=== PATIENT | male | born 1960 | race Caucasian/White ===

== ENCOUNTER 2020-11-02 11:24 | Day surgery (SDC) | payer MEDICARE ==
[2020-11-02] MEDS ORDERED: BUPIVACAINE 0.5% VIAL IJ ONE (11:25)
[2020-11-02] MEDS ORDERED: Depo-Medrol 40 MG/ML IM ONE (11:25)
[2020-11-02] MEDS ORDERED: DIPRIVAN 200 MG/20 ML IV ONE (13:03)
--- NOTE | 2020-11-02 14:18 | XRAY ---
Indication: Right hip and greater trochanter bursa injection. Intraoperative fluoroscopy provided for 26 seconds. 2 digital spot image submitted for interpretation demonstrates needle tip projecting lateral to the right femur neck. Second needle tip lateral to the greater trochanter. Small amount of contrast injected for both needle tip placement. Correlate with intraoperative findings/report.
--- NOTE | 2020-11-02 15:03 | XRAY ---
26 seconds of fluoroscopy was used in surgery for a right greater trochanteric bursa and intra-articular hip injection.
[2020-11-02] MEDS ORDERED: Lactated Ringers 1,000 ML IV ONE (15:33)
== END 2020-11-02 13:33 | disposition home or self-care (01) ==
LOC: SDC-PAIN 11:24
PROVIDERS: ATTEND Psychiatry & Neurology Pain Medicine
DX: M70.61 Trochanteric bursitis, right hip (principal); M16.11 Unilateral primary osteoarthritis, right hip; I10 Essential (primary) hypertension; M41.9 Scoliosis, unspecified; G25.81 Restless legs syndrome; Z86.73 Personal history of transient ischemic attack (TIA), and cerebral infarction without residual deficits; I25.10 Atherosclerotic heart disease of native coronary artery without angina pectoris; K21.9 Gastro-esophageal reflux disease without esophagitis; Z79.899 Other long term (current) drug therapy
CPT/HCPCS: 20610; 73502; 77002; J1030; J2704; Q9966

== ENCOUNTER 2021-03-01 09:38 | Day surgery (SDC) | payer MEDICARE ==
[2021-03-01] MEDS ORDERED: DIPRIVAN 200 MG/20 ML IV ONE (09:39)
[2021-03-01] MEDS ORDERED: Depo-Medrol 40 MG/ML IM ONE (09:39)
[2021-03-01] MEDS ORDERED: BUPIVACAINE 0.5% VIAL IJ ONE (09:39)
[2021-03-01] MEDS ORDERED: Lactated Ringers 1,000 ML IV ONE (12:28)
--- NOTE | 2021-03-01 13:06 | XRAY ---
Indication: Right hip and greater trochanter bursa injection. Intraoperative fluoroscopy provided for 22 seconds. 4 digital spot images submitted for interpretation demonstrates needle tip projecting lateral to right femur neck and second needle tip lateral to right greater trochanter. Small amount of contrast injected for both needle tip placement. Correlate with intraoperative findings/report.
--- NOTE | 2021-03-01 13:40 | XRAY ---
22 seconds of fluoroscopy was used in surgery for a right greater trochanteric bursa and intra-articular hip injection.
== END 2021-03-01 12:30 | disposition home or self-care (01) ==
LOC: SDC-PAIN 09:38
PROVIDERS: ATTEND Psychiatry & Neurology Pain Medicine
DX: M16.11 Unilateral primary osteoarthritis, right hip (principal); M70.61 Trochanteric bursitis, right hip; Z79.899 Other long term (current) drug therapy
CPT/HCPCS: 20610; 73502; 77002; J1030; J2704; Q9966

== ENCOUNTER 2021-04-05 10:05 | Day surgery (SDC) | payer MEDICARE ==
[2021-04-05] MEDS ORDERED: BUPIVACAINE 0.5% VIAL IJ ONE (10:06)
[2021-04-05] MEDS ORDERED: Depo-Medrol 40 MG/ML IM ONE (10:06)
[2021-04-05] MEDS ORDERED: DIPRIVAN 200 MG/20 ML IV ONE (12:05)
[2021-04-05] MEDS ORDERED: Lactated Ringers 1,000 ML IV ONE (12:19)
--- NOTE | 2021-04-05 12:39 | XRAY ---
Indication: Right SI joint injection. Intraoperative fluoroscopy provided for 9 seconds. 2 digital spot image submitted for interpretation demonstrate posterior needle tip projecting over the inferior right SI joint. Correlate with intraoperative findings/report.
--- NOTE | 2021-04-05 14:11 | XRAY ---
9 seconds of fluoroscopy was used in surgery for a right SI joint injection.
== END 2021-04-05 12:28 | disposition home or self-care (01) ==
LOC: SDC-PAIN 10:05
PROVIDERS: ATTEND Psychiatry & Neurology Pain Medicine
DX: M46.1 Sacroiliitis, not elsewhere classified (principal); I25.10 Atherosclerotic heart disease of native coronary artery without angina pectoris; K21.9 Gastro-esophageal reflux disease without esophagitis; I10 Essential (primary) hypertension; Z79.899 Other long term (current) drug therapy
CPT/HCPCS: 27096; 72020; 77002; G0260; J1030; J2704

== ENCOUNTER 2021-08-02 09:18 | Day surgery (SDC) | payer MEDICARE ==
[2021-08-02] MEDS ORDERED: Lactated Ringers 1,000 ML IV ONE (11:25)
[2021-08-02] MEDS ORDERED: DIPRIVAN 200 MG/20 ML IV ONE (11:49)
--- NOTE | 2021-08-02 12:41 | XRAY ---
Indication: Right hip and greater trochanter bursa injections. Intraoperative fluoroscopy provided for 27 seconds. 2 digital spot image submitted for interpretation demonstrates needle tip projecting lateral to the right femur neck and greater trochanter. Small amount of contrast injected for both needle tip placement. Correlate with intraoperative findings/report.
--- NOTE | 2021-08-02 14:07 | XRAY ---
27 seconds fluoroscopy time in surgery for intra-articular and greater trochanter injections of the right hip.
== END 2021-08-02 12:17 | disposition home or self-care (01) ==
LOC: SDC-PAIN 09:18
PROVIDERS: ATTEND Psychiatry & Neurology Pain Medicine
DX: M16.11 Unilateral primary osteoarthritis, right hip (principal); M70.61 Trochanteric bursitis, right hip; Z79.899 Other long term (current) drug therapy
CPT/HCPCS: 73502; 77002; J2704

== ENCOUNTER 2022-01-31 10:12 | Day surgery (SDC) | payer MEDICARE ==
[2022-01-31] MEDS ORDERED: Depo-Medrol 40 MG/ML IM ONE (10:13)
[2022-01-31] MEDS ORDERED: Marcaine Mpf 0.5% Vial 30 Ml IJ ONE (10:13)
[2022-01-31] MEDS ORDERED: DIPRIVAN 200 MG/20 ML IV ONE (12:27)
--- NOTE | 2022-01-31 13:23 | XRAY ---
Indication: Right SI joint and right greater trochanter bursa injections. Intraoperative fluoroscopy provided for 13 seconds. 4 digital spot image obtained prone submitted for interpretation demonstrates posterior needle tip projecting over the right SI joint. Second needle tip lateral to right greater trochanter with small amount of contrast injected for needle tip placement. Correlate with intraoperative findings/report.
--- NOTE | 2022-01-31 13:24 | XRAY ---
13 seconds fluoroscopy time in surgery for injections of the right SI joint and the greater trochanteric bursa of the right hip.
[2022-01-31] MEDS ORDERED: Lactated Ringers 1,000 ML IV ONE (14:21)
== END 2022-01-31 12:50 | disposition home or self-care (01) ==
LOC: SDC-PAIN 10:12
PROVIDERS: ATTEND Psychiatry & Neurology Pain Medicine
DX: M46.1 Sacroiliitis, not elsewhere classified (principal); M70.61 Trochanteric bursitis, right hip; Z79.899 Other long term (current) drug therapy
CPT/HCPCS: 01992; 20610; 27096; 73501; 77002; G0260; J1030; J2704; Q9966

== ENCOUNTER 2022-04-18 08:55 | Day surgery (SDC) | payer MEDICARE ==
[2022-04-18] MEDS ORDERED: Depo-Medrol 40 MG/ML IM ONE (08:56)
[2022-04-18] MEDS ORDERED: Sodium Chloride 0.9(Preservative Free) 10 ML IJ ONE (08:56)
[2022-04-18] MEDS ORDERED: DIPRIVAN 200 MG/20 ML IV ONE (11:08)
--- NOTE | 2022-04-18 12:17 | XRAY ---
Indication: Right L4-S1 transforaminal BRINA. Intraoperative fluoroscopy provided 37 seconds. 7 digital spot image submitted for interpretation demonstrates posterior needle tips projecting over the expected right L4 and L5 nerve roots. Small amount of contrast injected for needle tip placement. Correlate with intraoperative findings/report.
--- NOTE | 2022-04-18 12:19 | XRAY ---
37 seconds of fluoroscopy was used in surgery for a right L4-S1 transforaminal BRINA.
[2022-04-18] MEDS ORDERED: Lactated Ringers 1,000 ML IV ONE (12:52)
== END 2022-04-18 11:45 | disposition home or self-care (01) ==
LOC: SDC-PAIN 08:55
PROVIDERS: ATTEND Psychiatry & Neurology Pain Medicine
DX: M54.16 Radiculopathy, lumbar region (principal); Z79.899 Other long term (current) drug therapy
CPT/HCPCS: 64483; 64484; 72100; 77003; J1030; J2704; Q9966

== ENCOUNTER 2022-05-16 10:53 | Day surgery (SDC) | payer MEDICARE ==
[2022-05-16] MEDS ORDERED: LIDOCAINE HCL 2% 100 MG/5 ML IJ ONE (10:54)
[2022-05-16] MEDS ORDERED: DIPRIVAN 200 MG/20 ML IV ONE (13:00)
[2022-05-16] MEDS ORDERED: Lactated Ringers 1,000 ML IV ONE (14:08)
--- NOTE | 2022-05-16 16:19 | XRAY ---
Indication: Bilateral L4-S1 MBB. Intraoperative fluoroscopy provided for 29 seconds. Single digital spot image submitted for interpretation demonstrates posterior needle tips projecting over the expected left and right L4-S1 nerve roots. Correlate with intraoperative findings/report.
--- NOTE | 2022-05-16 16:30 | XRAY ---
29 seconds of fluoroscopy was used in surgery for a bilateral L4-S1 MBB.
== END 2022-05-16 13:21 | disposition home or self-care (01) ==
LOC: SDC-PAIN 10:53
PROVIDERS: ATTEND Psychiatry & Neurology Pain Medicine
DX: M47.816 Spondylosis without myelopathy or radiculopathy, lumbar region (principal); Z79.899 Other long term (current) drug therapy
CPT/HCPCS: 64493; 64494; 72020; 77002; J2704

== ENCOUNTER 2022-06-13 11:11 | Day surgery (SDC) | payer MEDICARE ==
[2022-06-13] MEDS ORDERED: BUPIVACAINE 0.5% VIAL IJ ONE (11:12)
[2022-06-13] MEDS ORDERED: Lactated Ringers 1,000 ML IV ONE (13:32)
[2022-06-13] MEDS ORDERED: DIPRIVAN 200 MG/20 ML IV ONE (13:54)
--- NOTE | 2022-06-13 14:24 | XRAY ---
Indication: Bilateral L4-S1 MBB. Intraoperative fluoroscopy provided for 17 seconds. Single digital spot image submitted for interpretation demonstrates posterior needle tips projecting over the expected left and right L4-S1 nerve roots. Correlate with intraoperative findings/report.
--- NOTE | 2022-06-13 14:30 | XRAY ---
17 seconds of fluoroscopy was used in surgery for a bilateral L4-S1 MBB.
== END 2022-06-13 14:25 | disposition home or self-care (01) ==
LOC: SDC-PAIN 11:11
PROVIDERS: ATTEND Psychiatry & Neurology Pain Medicine
DX: M47.816 Spondylosis without myelopathy or radiculopathy, lumbar region (principal); Z79.899 Other long term (current) drug therapy
CPT/HCPCS: 64493; 64494; 72020; 77002; J2704

== ENCOUNTER 2022-07-11 14:43 | Day surgery (SDC) | payer MEDICARE ==
[2022-07-11] MEDS ORDERED: BUPIVACAINE 0.5% VIAL IJ ONE (14:44)
[2022-07-11] MEDS ORDERED: Depo-Medrol 40 MG/ML IM ONE (14:44)
[2022-07-11] MEDS ORDERED: LIDOCAINE HCL 1% 50 MG/5 ML VL PF IJ ONE (14:44)
[2022-07-11] MEDS ORDERED: DIPRIVAN 200 MG/20 ML IV ONE (17:15)
[2022-07-11] MEDS ORDERED: Lactated Ringers 1,000 ML IV ONE (17:17)
--- NOTE | 2022-07-11 20:50 | XRAY ---
Indication: Right L4-S1 RFA. Intraoperative fluoroscopy provided for 31 seconds. 3 digital spot image submitted for interpretation demonstrates posterior needle tips projecting over the expected right L4-S1 nerve roots. Correlate with intraoperative findings/report.
--- NOTE | 2022-07-12 08:42 | XRAY ---
31 seconds of fluoroscopy was used in surgery for a right L4-S1 RFA.
== END 2022-07-11 17:50 | disposition home or self-care (01) ==
LOC: SDC-PAIN 14:43
PROVIDERS: ATTEND Psychiatry & Neurology Pain Medicine
DX: M47.816 Spondylosis without myelopathy or radiculopathy, lumbar region (principal); Z79.899 Other long term (current) drug therapy
CPT/HCPCS: 64635; 64636; 72100; 77002; J1030; J2001; J2704

== ENCOUNTER 2022-07-25 12:29 | Emergency (ER) | payer MEDICARE ==
--- NOTE | 2022-07-25 12:38 | ERPHSYRPT ---
- History of Present Illness Time Seen by Provider: 07/25/22 12:37 Source: patient Exam Limitations: no limitations Physician History: This is a 62-year-old white male who has a history of CVA in the past and has been on Aggrenox antiplatelet therapy for this. He has been off this medication for few days because he was to undergo a spinal procedure in his back. However, in the preop assessment he was found to be tachycardic in the 160s range. A twelve-lead EKG did show atrial fibrillation with RVR. It captured at a heart rate of 114 bpm. Patient denies chest pain. Patient denies shortness of breath. Obviously, the procedure was canceled and he was sent to the emergency department for further evaluation and management. He does not appear to be in any distress in the emergency department. Patient states he has no known history of atrial fibrillation. He has never had this happen to him before. He last saw a java web developer 6 years ago. He does not recall the name of that java web developer. Timing/Duration: today Severity of Pain-Max: none Severity of Pain-Current: none Nitro Today/Relief: no nitro taken today Aspirin Treatment Today: no aspirin today Associated Symptoms: denies symptoms, No shortness of breath, No chest pain Prior Chest Pain/Cardiac Workup: no prior chest pain, cardiac cath (6 years ago and everything was negative per patient report) Allergies/Adverse Reactions: No Known Drug Allergies Allergy (Verified 07/25/22 12:52) Home Medications: Ascorbic Acid [Vitamin C] 500 mg PO QID 07/25/22 [History] Aspirin/Dipyridamole [Aspirin-Dipyridam ER 25-200 mg] 1 each PO BID 07/25/22 [History] Baclofen 10 mg [Lioresal 10 mg] 10 mg PO TID 07/25/22 [History] Folic Acid 1 mg [Folate 1 mg] 1 mg PO DAILY 07/25/22 [History] Glucosamine/Methylsulfonylmeth [Glucosamine-MSM Caplet] 2 each PO DAILY 07/25/22 [History] Hydrocodone/Acetaminophen [Hydrocodone-Acetamin 10-325 mg] 1 each PO TID PRN 07/25/22 [History] Latanoprost/Pf [Latanoprost 0.005% Eye Drop] 0 ml OP HS 07/25/22 [History] Lisinopril 10 mg [Zestril 10 MG] 10 mg PO DAILY 07/25/22 [History] Losartan Potassium 50 mg [Cozaar 50 MG] 50 mg PO DAILY 07/25/22 [History] Magnesium Oxide [Magnesium] 800 mg PO DAILY 07/25/22 [History] Omeprazole 40 mg PO DAILY 07/25/22 [History] Pramipexole Di-HCl [Pramipexole Dihydrochloride] 2 mg PO BID 07/25/22 [History] Rosuvastatin Calcium 10 mg PO HS 07/25/22 [History] Timolol Maleate 0.5% Eye [Timoptic 0.5% 5 ml Ophthalmic] 0 ml OP QAM 07/25/22 [History] Zinc Gluconate [Zinc] 100 mg PO DAILY 07/25/22 [History] levETIRAcetam [Levetiracetam] 1,500 mg PO QAM 07/25/22 [History] Travel Risk - International Travel Have you traveled outside of the country in past 3 weeks: No - Coronavirus Screening Are you exhibiting any of the following symptoms?: No Close contact with a COVID-19 positive Pt in past 14-21 Days: No - Review of Systems Constitutional: No Symptoms Eyes: No Symptoms Ears, Nose, & Throat: No Symptoms Respiratory: No Symptoms Cardiac: Palpitations Abdominal/Gastrointestinal: No Symptoms Genitourinary Symptoms: No Symptoms Musculoskeletal: No Symptoms Skin: No Symptoms Neurological: No Symptoms Psychological: No Symptoms Endocrine: No Symptoms Hematologic/Lymphatic: No Symptoms Immunological/Allergic: No Symptoms All Other Systems: Reviewed and Negative - Past Medical History Pertinent Past Medical History: Yes - Past Surgical History Past Surgical History: Yes - Nursing Vital Signs Nursing Vital Signs: Initial Vital Signs Temperature 98.0 F 07/25/22 12:32 Pulse Rate 105 H 07/25/22 12:32 Respiratory Rate 16 07/25/22 12:32 Blood Pressure 126/79 07/25/22 12:32 O2 Sat by Pulse Oximetry 97 07/25/22 12:32 Pain Scale Pain Intensity 0 - Physical Exam General Appearance: no apparent distress, alert, anxiety Eye Exam: PERRL/EOMI, eyes nml inspection Ears, Nose, Throat Exam: normal ENT inspection, moist mucous membranes Neck Exam: normal inspection, non-tender, supple, full range of motion Respiratory Exam: normal breath sounds, lungs clear, No chest tenderness, No respiratory distress, No airway intact Cardiovascular Exam: tachycardia, irregular Gastrointestinal/Abdomen Exam: soft, normal bowel sounds, No tenderness Back Exam: normal inspection, normal range of motion, No CVA tenderness Extremity Exam: normal inspection, normal range of motion, pelvis stable Neurologic Exam: alert, oriented x 3, cooperative, playground 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 This was interpreted by me.) Ordered Tests: Active Orders 24 hr Category Date Time Status Ceramics Test Engineer STAT Care 07/25/22 12:56 Active EKG-ER Only STAT Care 07/25/22 12:56 Active IV Insertion STAT Care 07/25/22 12:56 Active CBC W DIFF Stat Lab 07/25/22 13:00 Completed CMP Stat Lab 07/25/22 13:00 Completed MAGNESIUM Stat Lab 07/25/22 13:00 Completed NT PRO BNPII Stat Lab 07/25/22 13:00 Completed PROTIME WITH INR Stat Lab 07/25/22 13:00 Completed TROPONIN Q4H Lab 07/25/22 13:00 Completed TROPONIN Q4H Lab 07/25/22 17:00 Ordered TROPONIN Q4H Lab 07/25/22 21:00 Ordered EKG STAT RT 07/25/22 12:11 Completed Medication Summary Generic Name Dose Route Start Last Admin Trade Name Freq PRN Reason Stop Dose Admin Sodium Chloride 1,000 mls @ 100 mls/hr 07/25/22 14:00 07/25/22 13:52 Sodium Chloride 0.9% 1000 Ml IV 08/24/22 13:59 100 mls/hr .Q10H ROJELIO Administration Discontinued Medications Generic Name Dose Route Start Last Admin Trade Name Freq PRN Reason Stop Dose Admin Diltiazem HCl 15 mg 07/25/22 12:56 07/25/22 13:09 Diltiazem Hcl Iv 5 Mg/Ml Vial IV 07/25/22 12:57 15 mg STAT ONE Administration Diltiazem HCl Confirm 07/25/22 13:03 Diltiazem Hcl Iv 5 Mg/Ml Vial Administered 07/25/22 13:04 Dose 50 mg IV .STK-MED ONE Enoxaparin Sodium 100 mg 07/25/22 13:03 07/25/22 13:39 Enoxaparin Sodium 120 Mg/0.8 Ml Syringe SQ 07/25/22 13:04 100 mg STAT STA Administration Enoxaparin Sodium Confirm 07/25/22 13:39 Enoxaparin Sodium 120 Mg/0.8 Ml Syringe Administered 07/25/22 13:40 Dose 120 mg SQ .STK-MED ONE Sodium Chloride Confirm 07/25/22 13:03 Sodium Chloride 0.9% 1000 Ml Administered 07/25/22 13:04 Dose 1,000 mls @ ud .ROUTE .STK-MED ONE Lab/Rad Data: Laboratory Result Diagrams 07/25/22 13:00 07/25/22 13:00 Laboratory Results 07/25/22 07/25/22 07/25/22 Range/Units 13:00 13:00 13:00 WBC (4.0-10.5) x10^3/uL RBC (4.1-5.6) x10^6/uL Hgb (12.5-18.0) g/dL Hct (42-50) % MCV (78-100) fL MCH (26-32) pg MCHC (32-36) g/dL RDW (11.5-14.0) % Plt Count (150-450) x10^3/uL MPV (7.5-11.0) fL Gran % (36.0-66.0) % Immature Gran % (Auto) (0.00-0.4) % Nucleat RBC Rel Count (0.00-0.1) % Eos # (Auto) (0-0.5) x10^3/uL Immature Gran # (Auto) (0.00-0.03) x10^3u/L Absolute Lymphs (auto) (1.0-4.6) x10^3/uL Absolute Monos (auto) (0.0-1.3) x10^3/uL Absolute Nucleated RBC (0.00-0.01) x10^3u/L Lymphocytes % (24.0-44.0) % Monocytes % (0.0-12.0) % Eosinophils % (0.00-5.0) % Basophils % (0.0-0.4) % Absolute Granulocytes (1.4-6.9) x10^3/uL Basophils # (0-0.4) x10^3/uL PT 10.9 (9.4-12.5) SECONDS INR 1.00 (0.8-3.0) Sodium 140 (137-145) mmol/L Potassium 4.2 (3.5-5.1) mmol/L Chloride 105 (98-107) mmol/L Carbon Dioxide 26 (22-30) mmol/L Anion Gap 13.7 (5-15) MEQ/L BUN 15 (9-20) mg/dL Creatinine 0.68 (0.66-1.25) mg/dL Estimated GFR > 60.0 ML/MIN Glucose 106 (74-106) mg/dL Calcium 9.4 (8.4-10.2) mg/dL Magnesium 2.2 (1.6-2.3) mg/dL Total Bilirubin 1.10 (0.2-1.3) mg/dL AST 28 (17-59) U/L ALT 23 (0-50) U/L Alkaline Phosphatase 66 (38-126) U/L Troponin I < 0.012 (0.000-0.034) ng/mL NT-Pro-B Natriuret Pep 63.3 (<300) pg/mL Serum Total Protein 6.8 (6.3-8.2) g/dL Albumin 4.4 (3.5-5.0) g/dL 07/25/22 Range/Units 13:00 WBC 6.4 (4.0-10.5) x10^3/uL RBC 4.88 (4.1-5.6) x10^6/uL Hgb 15.3 (12.5-18.0) g/dL Hct 45.4 (42-50) % MCV 93.0 (78-100) fL MCH 31.4 (26-32) pg MCHC 33.7 (32-36) g/dL RDW 13.2 (11.5-14.0) % Plt Count 232 (150-450) x10^3/uL MPV 8.6 (7.5-11.0) fL Gran % 67.7 H (36.0-66.0) % Immature Gran % (Auto) 0.3 (0.00-0.4) % Nucleat RBC Rel Count 0.0 (0.00-0.1) % Eos # (Auto) 0.09 (0-0.5) x10^3/uL Immature Gran # (Auto) 0.02 (0.00-0.03) x10^3u/L Absolute Lymphs (auto) 1.55 (1.0-4.6) x10^3/uL Absolute Monos (auto) 0.37 (0.0-1.3) x10^3/uL Absolute Nucleated RBC 0.00 (0.00-0.01) x10^3u/L Lymphocytes % 24.3 (24.0-44.0) % Monocytes % 5.8 (0.0-12.0) % Eosinophils % 1.4 (0.00-5.0) % Basophils % 0.5 (0.0-0.4) % Absolute Granulocytes 4.31 (1.4-6.9) x10^3/uL Basophils # 0.03 (0-0.4) x10^3/uL PT (9.4-12.5) SECONDS INR (0.8-3.0) Sodium (137-145) mmol/L Potassium (3.5-5.1) mmol/L Chloride (98-107) mmol/L Carbon Dioxide (22-30) mmol/L Anion Gap (5-15) MEQ/L BUN (9-20) mg/dL Creatinine (0.66-1.25) mg/dL Estimated GFR ML/MIN Glucose (74-106) mg/dL Calcium (8.4-10.2) mg/dL Magnesium (1.6-2.3) mg/dL Total Bilirubin (0.2-1.3) mg/dL AST (17-59) U/L ALT (0-50) U/L Alkaline Phosphatase (38-126) U/L Troponin I (0.000-0.034) ng/mL NT-Pro-B Natriuret Pep (<300) pg/mL Serum Total Protein (6.3-8.2) g/dL Albumin (3.5-5.0) g/dL - Progress Progress: improved, re-examined Air Movement: good Progress Note: 07/25/22 13:46 Repeat twelve-lead EKG performed after 15 mg intravenous Cardizem shows heart rate of 88 but the patient continues to be in atrial fibrillation. No acute ischemic changes are present. This was interpreted by me. 07/25/22 14:09 This patient's medical issue is 1 of high complexity. The level of complexity is and the work-up performed is based on the history of present illness, review of the patient's medication list, review of the medication allergy list, history of present illness and findings on physical examination. The work-up includes twelve-lead EKG, intravenous line, Cardizem 15 mg intravenous x1, CBC, CMP, D- dimer, troponin, magnesium level. I reviewed the results of this work-up. I discussed this with the patient. The patient has new onset atrial fibrillation with RVR. I will place him on a Holter monitor. We will contact a java web developer for him to be seen. I will contact the java web developer to see if he wants in, in the interim, placement on metoprolol/Cardizem and or a different anticoagulant. 07/25/22 14:[address] Alfaro, java web developer. I reviewed the patient's history, twelve- lead EKG findings, and the results of the work-up and the patient's response to the work-up and interventions. He feels that the patient can be discharged to home and we will place him on metoprolol 25 mg orally twice a day as well as Eliquis 5 mg orally twice a day. He is to see the patient in his office. We will make arrangements for him to be evaluated. We will also place him on a Holter monitor. Blood Culture(s) Obtained: No Antibiotics given: No Counseled pt/family regarding: lab results, diagnosis, need for follow-up Medical Desision Making - Discussion of managment Care discussed with:: specialist ([employer] Dr. Alfaro) Reviewed:: Test results, Need for additional workup Agreed on:: Treatment plan, need for follow-up - Diagnostic Testing Diagnostic test were ordered, analyzed, and reviewed by me: Yes - Risk of complications The pt has a mod risk of morbidity or mortality based on: Need for prescription drug management - Departure Departure Disposition: Home Clinical Impression: New onset atrial fibrillation Condition: Stable Critical Care Time: Yes Critical Care Time(excluding separately billable procedures): Critical 30-74 m ins (45) Referrals: JOHNSON PIERCE [Primary Care Provider] - Follow up/PCP as directed Additional Instructions: Take your new medication as prescribed. Follow-up with java web developer office Dr. Alfaro at your scheduled date and appointment time. Do not take your Aggrenox. Take your other medications as prescribed. Wear your Holter monitor and return it as instructed. Prescriptions: Apixaban [Eliquis] 5 mg PO BID #28 tablet Metoprolol Tartrate 25 mg [Lopressor 25MG Tab] 25 mg PO BID #28 tab
[2022-07-25] MEDS ORDERED: Cardizem IV 50 MG/10 ML IV ONE ×2 (12:56→13:03)
[2022-07-25] MEDS ORDERED: ENOXAPARIN SODIUM SQ STA (13:03)
[2022-07-25] MEDS ORDERED: Sodium Chloride 0.9% 1000 ML 1,000 ML ONE (13:03)
[2022-07-25 13:06] LABS: Absolute Neutrophil Ct (ANC) 4.31 x10^3/uL (1.4-6.9); BASOPHIL % 0.5 % (0.0-0.4); Basophil (Absolute #) 0.03 x10^3/uL (0-0.4); Eosinophil % 1.4 % (0.00-5.0); Eosinophil (Absolute #) 0.09 x10^3/uL (0-0.5); Hematocrit 45.4 % (42-50); Hemoglobin 15.3 g/dL (12.5-18.0); IMMATURE GRAN # 0.02 x10^3u/L (0.00-0.03); IMMATURE GRAN % 0.3 % (0.00-0.4); Lymphocyte (Absolute #) 1.55 x10^3/uL (1.0-4.6); Lymphocytes % 24.3 % (24.0-44.0); Mean Corpuscular Hemoglobin 31.4 pg (26-32); Mean Corpuscular Hgb Concent. 33.7 g/dL (32-36); Mean Platelet Volume 8.6 fL (7.5-11.0); Monocyte (Absolute #) 0.37 x10^3/uL (0.0-1.3); Monocytes % 5.8 % (0.0-12.0); Neutrophil % 67.7 % (36.0-66.0); Platelet Count 232 x10^3/uL (150-450); Red Blood Count 4.88 x10^6/uL (4.1-5.6); Red Cell Distribution Width 13.2 % (11.5-14.0); White Blood Count 6.4 x10^3/uL (4.0-10.5)
[2022-07-25 13:22] LABS: PROTIME 10.9 SECONDS (9.4-12.5)
[2022-07-25 13:31] LABS: ALBUMIN 4.4 g/dL (3.5-5.0); ALKALINE PHOSPHATASE 66 U/L (38-126); ANION GAP 13.7 MEQ/L (5-15); BLOOD UREA NITROGEN 15 mg/dL (9-20); CHLORIDE 105 mmol/L (98-107); Calcium 9.4 mg/dL (8.4-10.2); Carbon Dioxide 26 mmol/L (22-30); Creatinine 1 0.68 mg/dL (0.66-1.25); EST GLOMERULAR FILTRATION RATE > 60.0 ML/MIN; Glucose 106 mg/dL (74-106); MAGNESIUM 2.2 mg/dL (1.6-2.3); NT PRO BNPII 63.3 pg/mL (<300); Potassium 4.2 mmol/L (3.5-5.1); SGOT/AST 28 U/L (17-59); SGPT/ALT 23 U/L (0-50); SODIUM 140 mmol/L (137-145); Total Protein 6.8 g/dL (6.3-8.2)
[2022-07-25] MEDS ORDERED: ENOXAPARIN SODIUM SQ ONE (13:39)
[2022-07-25] MEDS ORDERED: Sodium Chloride 0.9% 1000 ML 1,000 ML IV SCH (14:00)
[2022-07-25 14:12] VITALS: PULSE 99
[2022-07-25 15:22] VITALS: BP 119/67; O2SAT 96
== END 2022-07-25 15:21 | disposition home or self-care (01) ==
LOC: EDSTATUS 12:29 → ED 12:29
DX: I48.91 Unspecified atrial fibrillation (principal); Z79.01 Long term (current) use of anticoagulants; R00.0 Tachycardia, unspecified; Z79.891 Long term (current) use of opiate analgesic; Z79.899 Other long term (current) drug therapy
CPT/HCPCS: 36000; 36415; 80053; 83735; 83880; 84484; 85025; 85610; 93005; 93041; 96372; 96374; 99284; 99291; J1650

== ENCOUNTER 2022-10-10 14:12 | Day surgery (SDC) | payer MEDICARE ==
[2022-10-10] MEDS ORDERED: BUPIVACAINE 0.5% VIAL IJ ONE (14:13)
[2022-10-10] MEDS ORDERED: LIDOCAINE HCL 1% 50 MG/5 ML VL PF IJ ONE (14:13)
[2022-10-10] MEDS ORDERED: Depo-Medrol 40 MG/ML IM ONE (14:13)
[2022-10-10] MEDS ORDERED: DIPRIVAN 200 MG/20 ML IV ONE ×2 (16:02→16:21)
[2022-10-10] MEDS ORDERED: Lactated Ringers 1,000 ML IV ONE (16:23)
--- NOTE | 2022-10-10 18:55 | XRAY ---
Indication: Left L4-S1 RFA. Intraoperative fluoroscopy provided for 38 seconds. 4 digital spot image submitted for interpretation demonstrates posterior needle tips projecting over the expected left L4-S1 nerve roots. Correlate with intraoperative findings/report.
--- NOTE | 2022-10-11 09:46 | XRAY ---
38 second of fluoroscopy was used in surgery for a left L4-S1 RFA.
== END 2022-10-10 16:39 | disposition home or self-care (01) ==
LOC: SDC-PAIN 14:12
PROVIDERS: ATTEND Psychiatry & Neurology Pain Medicine
DX: M47.816 Spondylosis without myelopathy or radiculopathy, lumbar region (principal); Z79.899 Other long term (current) drug therapy
CPT/HCPCS: 64635; 64636; 72100; 77002; J1030; J2001; J2704

== ENCOUNTER 2023-12-11 14:02 | Day surgery (SDC) | payer MEDICARE ==
[2023-12-11] MEDS ORDERED: Sodium Chloride 0.9(Preservative Free) 10 ML IJ ONE (14:03)
[2023-12-11] MEDS ORDERED: Decadron 4 MG INJ IV ONE (14:03)
[2023-12-11] MEDS ORDERED: Lactated Ringers 1,000 ML IV ONE (15:43)
[2023-12-11] MEDS ORDERED: DIPRIVAN 200 MG/20 ML IV ONE (15:44)
--- NOTE | 2023-12-11 17:26 | XRAY ---
Indication: Right L1-L3 transforaminal BRINA. Intraoperative fluoroscopy provided for 25 seconds. 5 digital spot image submitted for interpretation demonstrates posterior needle tips projecting over expected right L1 and L2 nerve roots. Small amount of contrast injected for needle tip placement. Correlate with intraoperative findings/report.
--- NOTE | 2023-12-11 17:28 | XRAY ---
25 seconds of fluoroscopy was used in surgery for a right L1-L3 transforaminal BRINA.
== END 2023-12-11 16:15 | disposition home or self-care (01) ==
LOC: SDC-PAIN 14:02
PROVIDERS: ATTEND Psychiatry & Neurology Pain Medicine
DX: M54.16 Radiculopathy, lumbar region (principal)
CPT/HCPCS: 64483; 64484; 72100; 77003; J1100; J2704; Q9966

== ENCOUNTER 2024-03-18 11:38 | Day surgery (SDC) | payer MEDICARE ==
[2024-03-18] MEDS ORDERED: Depo-Medrol 40 MG/ML IM ONE (11:39)
[2024-03-18] MEDS ORDERED: BUPIVACAINE 0.5% VIAL IJ ONE (11:39)
[2024-03-18] MEDS ORDERED: DIPRIVAN 200 MG/20 ML IV ONE (13:31)
--- NOTE | 2024-03-18 16:34 | XRAY ---
Indication: Right greater trochanter bursa injection Intraoperative fluoroscopy provided for 8 seconds. Single digital spot image submitted for interpretation demonstrates needle tip projecting lateral to right greater trochanter. Small amount of contrast injected for needle tip placement. Correlate with intraoperative findings/report. Incidental incompletely visualized right total hip arthroplasty.
--- NOTE | 2024-03-18 17:10 | XRAY ---
8 seconds of fluoroscopy was used in surgery for a right greater trochanteric bursa injection.
== END 2024-03-18 14:03 | disposition home or self-care (01) ==
LOC: SDC-PAIN 11:38
PROVIDERS: ATTEND Psychiatry & Neurology Pain Medicine
DX: M70.61 Trochanteric bursitis, right hip (principal)
CPT/HCPCS: 20610; 73501; 77002; J2704; Q9966